=== PATIENT | male | born 1960 | race Caucasian/White ===

== ENCOUNTER → 2023-08-24 08:53 | Outpatient (REF) | payer BC, SELFPAY | LOC: HWRAD 08:53 | PROVIDERS: ATTENDING PHYSICIAN Internal Medicine | DX: R74.8 Abnormal levels of other serum enzymes (principal) | CPT/HCPCS: 76700 ==

== ENCOUNTER → 2023-08-31 08:13 | Outpatient (REF) | payer BC, SELFPAY | LOC: HWRAD 08:13 | PROVIDERS: ATTENDING PHYSICIAN Internal Medicine | DX: K76.9 Liver disease, unspecified (principal) | CPT/HCPCS: 74178; Q9967 ==

== ENCOUNTER → 2023-10-02 19:36 | Outpatient (REF) | payer BC, SELFPAY | LOC: MRI 19:36 | PROVIDERS: ATTENDING PHYSICIAN Internal Medicine | DX: N28.89 Other specified disorders of kidney and ureter (principal) | CPT/HCPCS: 74183; A9575 ==